=== PATIENT | female | born 1970 | race Caucasian/White ===

== ENCOUNTER 2017-09-22 08:56 | Emergency (ER) | payer MEDICARE, OTHER ==
[~2017-09-22] VITALS: Ht 175.3 cm; Wt 90.0 kg
[~2017-09-22 08:56] MED LIST: BUTO10SO EACH NARE; CLON1 PO; HYDR-3133 PO; METO5TAB PO; PROT40TA PO; ROPI.5 PO; SUCR1S PO; TRAZ100T4 PO; ZOFR4TAB3 SL; ZYBA150T PO
[2017-09-22 08:57] VITALS: BP 133/77; PULSE 84; RESP 15; TEMP 98.2; O2SAT 99
[2017-09-22] MEDS ORDERED: IBUPROFEN 800 MG TAB PO ONE (09:30)
[2017-09-22] MEDS ORDERED: ATEN25TA PO (09:31)
[2017-09-22] MEDS ORDERED: ALPR.25 PO (09:31)
[2017-09-22] MEDS ORDERED: FLUO-1 PO (09:31)
[2017-09-22] MEDS ORDERED: TRAZ100T6 PO (09:31)
[2017-09-22] MEDS ORDERED: HYDR-3133 PO (09:31)
[2017-09-22] MEDS ORDERED: REQU5TAB PO (09:31)
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
[2017-09-22] MEDS ORDERED: IBUP800T23 PO (09:58)
--- NOTE | 2017-09-22 10:27 | RADRPT ---
EXAM DATE/TIME: 09/22/2017 09:56 [facility] COMPARISON: No previous studies available for comparison. INDICATIONS : Twisted her left foot/ankle last night. MEDICAL HISTORY : None. SURGICAL HISTORY : None. ENCOUNTER: Initial ACUITY: 2 days PAIN SCORE: 8/10 LOCATION: Left foot FINDINGS: Three view examination of the left foot demonstrates no soft tissue swelling, dislocation, or fractur e. The tarsal bones appear intact. The interphalangeal and metatarsophalangeal joints are intact. The calcaneus is intact. Bony mineralization is normal. CONCLUSION: No evidence of recent bony injury. Daron Cardozo MD on September 22, 2017 at 10:25 Board Certified Radiologist. This report was verified electronically.
--- NOTE | 2017-09-22 10:27 | RADRPT ---
EXAM DATE/TIME: 09/22/2017 09:54 [facility] COMPARISON: No previous studies available for comparison. INDICATIONS : Twisted her left ankle yesterday. MEDICAL HISTORY : None. SURGICAL HISTORY : None. ENCOUNTER: Initial ACUITY: 2 days PAIN SCORE: 8/10 LOCATION: Left ankle FINDINGS: Three view exam was performed of the left ankle. The bony structures are in normal alignment. No ev idence of fracture, dislocation, or soft tissue swelling. A few calcified phleboliths seen in the di stal medial leg soft tissues. The ankle mortise is intact. No radiopaque foreign bodies are seen. Bony mineralization is normal. CONCLUSION: No evidence of recent bony injury. Daron Cardozo MD on September 22, 2017 at 10:24 Board Certified Radiologist. This report was verified electronically.
== END 2017-09-22 10:57 | disposition home or self-care (01) ==
LOC: NEPK 08:56
DX: S99.912A Unspecified injury of left ankle, initial encounter (principal); S99.922A Unspecified injury of left foot, initial encounter; F31.9 Bipolar disorder, unspecified; F41.9 Anxiety disorder, unspecified; K21.9 Gastro-esophageal reflux disease without esophagitis; R56.9 Unspecified convulsions; F17.200 Nicotine dependence, unspecified, uncomplicated; Z87.19 Personal history of other diseases of the digestive system; X50.1XXA Overexertion from prolonged static or awkward postures, initial encounter
CPT/HCPCS: 73610; 73630; 99283; E0113; L1906